=== PATIENT | female | born 1985 | race Caucasian/White ===

== ENCOUNTER 2024-02-01 20:47 | Emergency (ER) | payer SELFPAY ==
[2024-02-01] VITALS (8 sets, daily range): BP systolic 116–170; BP diastolic 80–114; PULSE 82–123; RESP 13–21; TEMP 36.9; O2SAT 95–99; BMI 26.6
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
[2024-02-01 21:13] LABS: Basophils # 0.1 K/mm3 (0-0.2); Basophils % 0.8 % (0.1-2.0); Eosinophils # 0.2 K/mm3 (0.0-0.4); Eosinophils % 1.9 % (0.1-12.0); Hematocrit 45.2 % (37.0-47.0); Hemoglobin 14.8 g/dL (12.2-16.2); Lymphocytes # 3.6 K/mm3 (0.7-4.5); Lymphocytes % 29.7 % (10-50); Mean Corpuscular HGB Conc 32.8 g/dL (31.8-35.4); Mean Corpuscular Hemoglobin 31.3 pg (27.0-31.2); Mean Corpuscular Volume 95.4 fl (81-99); Mean Platelet Volume 8.2 fl (7.4-10.4); Monocytes # 0.6 K/mm3 (0.1-1.0); Monocytes % 5.1 % (1.7-9.3); Neutrophils # 7.5 K/mm3 (1.8-7.8); Neutrophils % 62.5 % (37.0-80.0); Platelet Count 386 K/mm3 (142-424); Red Blood Count 4.74 M/mm3 (4.20-5.40); Red Cell Distribution Width 13.7 % (11.5-17.5)
[2024-02-01 21:17] LABS: Chloride 105 mmol/L (98-107); Sodium 139 mmol/L (136-145)
[2024-02-01 21:18] LABS: Potassium 3.6 mmoL/L (3.5-5.1)
[2024-02-01 21:20] LABS: Alanine Aminotransferase 29 U/L (12-78); Albumin Level 4.7 g/dl (3.5-5.0); Albumin/Globulin Ratio 1.4 (1.1-1.8); Alkaline Phosphatase 127 U/L (38-126); Anion Gap 11.6 mEq/L (5-15); Aspartate Amino Transferase 27 U/L (14-36); Bilirubin,Total 0.7 mg/dl (0.2-1.3); Blood Urea Nitrogen 12 mg/dl (7-17); Calcium 10.1 mg/dl (8.4-10.2); Carbon Dioxide 26 mmol/L (22.0-30.0); Estimated Glomerular Filt Rate 93 ml/min (>60); Ethyl Alcohol < 10 mg/dl (0-10); GFR (African American) 112 ML/MIN (>60); Globulin 3.3 g/dL (1.3-3.2); Glucose 116 mg/dl (74-100)
[2024-02-01 21:21] LABS: Acetaminophen < 10 ug/ml (10-30); Salicylate < 1.0 mg/dL (2.0-20.0)
--- NOTE | 2024-02-01 21:23 | ECG_ITS ---
APPROVED REPORT Exam: Resting ECG HR:114 bpm ECG Measurements Heart Rate 114 AXES ME 120 P 71 QRSd 85 QRS 82 QT 352 T 74 QTc 420 Conclusion SINUS TACHYCARDIA POSSIBLE LEFT ATRIAL ENLARGEMENT [-0.1mV P-WAVE IN V1/V2] ABNORMAL RHYTHM ECG Electronically signed by : MINA THAKKAR, 02/02/2024 00:12:55
[2024-02-01 21:25] LABS: HCG Qualitative, Serum Negative (Negative)
--- NOTE | 2024-02-01 21:34 | PC.NURSE ---
pt states she took the trazodone at 3 am per D Sudhir RAMIREZ if every thing is normal and poison control states she is clear, pt can be medically cleared.
--- NOTE | 2024-02-01 21:51 | PC.NURSE ---
per poison control pt must be watch until 0030
[2024-02-01 21:58] LABS: Creatine Kinase 171 U/L (30-135)
[2024-02-02] VITALS: BP 132/94; PULSE 88; RESP 18; O2SAT 97
[2024-02-02 00:39] VITALS: BP 134/74; PULSE 87; RESP 16; TEMP 36.9; O2SAT 99
== END 2024-02-02 00:40 ==
PROVIDERS: Physician Assistant; Emergency Provider Emergency Medicine
DX: M25.512 Pain in left shoulder (principal); R00.0 Tachycardia, unspecified; F17.210 Nicotine dependence, cigarettes, uncomplicated; W22.8XXA Striking against or struck by other objects, initial encounter
CPT/HCPCS: 80053; 80329; 82550; 84703; 85025; 93005; 99283

== ENCOUNTER 2024-02-12 13:12 | Emergency (ER) | payer MEDICAID, SELFPAY ==
[2024-02-12 13:12] VITALS: BP 124/87; PULSE 96; RESP 20; TEMP 36.9; O2SAT 98; BMI 27.3
--- NOTE | 2024-02-12 13:17 | ECG_ITS ---
APPROVED REPORT Exam: Resting ECG HR:89 bpm ECG Measurements Heart Rate 89 AXES WY 132 P 71 QRSd 90 QRS 83 QT 354 T 75 QTc 401 Conclusion SINUS RHYTHM NORMAL ECG Electronically signed by : BILL WILLIAMSON, 02/12/2024 15:52:56
[2024-02-12 13:21] VITALS: BP 117/85; PULSE 94; O2SAT 98
--- NOTE | 2024-02-12 13:24 | XR_ITS ---
FINAL REPORT TECHNIQUE: Single view chest CLINICAL HISTORY: soa, cp FINDINGS: A single view of the chest was obtained. The heart and mediastinum are within normal limits. The lungs are clear. There is no pneumothorax. Osseous structures are unremarkable. IMPRESSION: No acute cardiopulmonary process. Reviewed, Interpreted and Dictated by Karson Meyer MD Transcribed by Afua Lowry Authenticated and [facility]
--- NOTE | 2024-02-12 13:26 | [facility].EDCP ---
Discharge Plan Disposition Patient Disposition: Home, Self-Care Referrals Follow up/Referrals: Javier Lugo MD [Staff Physician] - See instructions Provider,MD Dylon [Primary Care Provider] - See instructions Activity Restrictions/Add. Instructions Additional Instructions/Restrictions: No evidence of a cardiopulmonary emergency today please follow-up with your primary care doctor or with our grief counsellor to soon as possible. Return with any significant worsening of her symptoms. Clinical Impressions Clinical Impression: Chest pain Discharge ED Provider: Bogdan Menon HPI <Bogdan Menon MD - Last Filed: 02/12/24 14:42> General Chief Complaint: Chest Pain Stated Complaint: Chest Pain Time Seen by Provider: 02/12/24 13:17 History of Present Illness HPI narrative: Please note that above description of symptoms, in this electronic medical record under categorization of recalled from ER triage doctor by RN are reflective of an initial nursing assessment, however, is not reflective of my full history and physical exam that was personally taken and clarified. Consequentially, this preceding description of symptoms, which may include the patient's categorized chief complaint in the EMR, do not reflect my personal clinical impression, and the ultimate description of history of present illness and patient stated complaints should be deferred to this section of the note. Unless stated otherwise or congruent with this section of the note, additional signs, symptoms, or incongruence should be interpreted as inaccurate with my clinical impression. Related Data Allergies Allergy/AdvReac Type Severity Reaction Status Date / Time No Known Allergies Allergy Verified 02/01/24 23:40 PFSH <Bogdan Menon MD - Last Filed: 02/12/24 14:42> PFS Disclaimer: The information contained in this section may have been updated after the patient was seen, as this information can be updated by other users. Social History (Updated 02/01/24 @ 22:45 by KYLEE Barker) Smoking Status: Current every day smoker alcohol intake: current current occupational status: unemployed Travel in the last 8 weeks: None <Bogdan Menon MD - Last Filed: 02/12/24 14:42> ROS Obtained: Yes All systems reviewed & no additional complaints except as documented Physical Exam <Bogdan Menon MD - Last Filed: 02/12/24 14:42> General General appearance: alert Neck Neck exam: Present trachea midline Chest Chest inspection: Present normal inspection and symmetric chest wall rise Respiratory Respiratory exam: Present normal lung sounds bilaterally; Absent respiratory distress, wheezes, stridor, accessory muscle use or prolonged expiratory phase Cardiovascular Cardiovascular exam: Present regular rate and normal rhythm Extremities Exam Extremities exam: Absent edema Neurological Exam Neurological exam: Present alert, oriented X3 and CN II-XII intact Skin Skin exam: Present warm and dry; Absent cyanosis, diaphoresis or pallor HEART Score <Bogdan Menon MD - Last Filed: 02/12/24 14:42> HEART Score HEART Score assessment performed?: Yes HEART Score: 1 <Omaira Talley MD - Last Filed: 02/12/24 16:55> HEART Score History (anamnesis): Slightly suspicious ECG: Non-specific disturbance Age: <45 years Risk factors: No known risk factors Troponin: </= normal limit HEART Score: 1 Critical Care <Bogdan Menon MD - Last Filed: 02/12/24 14:42> Critical Care Time Critical Care Time: No Medical Decision Making <Bogdan Menon MD - Last Filed: 02/12/24 14:42> Medical Records Medical records reviewed: Yes I reviewed the patient's medical records. Jose Manuel Inquiry Pt receiving controlled substance: No Jose Manuel was queried for this patient: No Vital Signs Vital Signs: 02/12/24 13:12 02/12/24 13:21 02/12/24 13:30 Temperature 98.4 F Temperature Source Oral Pulse Rate 94 H 95 H Pulse Rate [Right Radial] 96 H Respiratory Rate 20 Blood Pressure 117/85 124/87 Blood Pressure [Right Arm] 124/87 Blood Pressure Mean 93 98 Blood Pressure Mean [Right Arm] 99 02 Sat by Pulse Oximetry 98 98 97 Oxygen Delivery Method Room Air Lab Data Labs: Lab Results 02/12/24 13:17: WBC 7.9, RBC 4.76, Hgb 14.8, Hct 45.4, MCV 95.5, MCH 31.2, MCHC 32.7, RDW 13.3, Plt Count 268, MPV 8.0, Neut % (Auto) 66.5, Lymph % (Auto) 26.8, [place] % (Auto) 5.4, Eos % (Auto) 0.4, Baso % (Auto) 0.9, Neut # (Auto) 5.3, Lymph # (Auto) 2.1, [place] # (Auto) 0.4, Eos # (Auto) 0.0, Baso # (Auto) 0.1, Sodium 141, Potassium 4.3, Chloride 105, Carbon Dioxide 29, Anion Gap 11.3, BUN 9, Creatinine 0.70, Estimated Creat Clear 138, Estimated GFR 93, Est GFR ( Amer) 112, Glucose 99, Hemoglobin A1c 5.0, Calcium 10.0, Total Bilirubin 0.5, AST 26, ALT 36, Alkaline Phosphatase 120, Troponin I < 0.01, Total Protein 7.2, Albumin 4.4, Globulin 2.8, Albumin/Globulin Ratio 1.6, Triglycerides 186 H, Cholesterol 190, LDL Cholesterol Direct 110.78, VLDL Cholesterol 37, HDL Cholesterol 41, Cholesterol/HDL Ratio 4.6 H, Lipase 85 02/12/24 16:00: Troponin I < 0.01 02/12/24 13:17 02/12/24 13:17 Response Orders (Tests/Meds): ED MEDICATIONS Discontinued Medications Generic Name Dose Route Start Last Admin Trade Name Mac PRN Reason Stop Dose Admin Acetaminophen 1,000 mg 02/12/24 13:24 02/12/24 13:39 Acetaminophen 1,000mg/100ml Vial IV 02/12/24 13:25 1,000 mg ONCE ONE Administration Aspirin 324 mg 02/12/24 13:24 02/12/24 13:36 Aspirin 81mg Chewable Tablet PO 02/12/24 13:25 Not Given ONCE ONE Belladonna Alkaloids 60 ml 02/12/24 13:25 02/12/24 13:38 Belladonna Alkaloids 60 Ml Ml PO 02/12/24 13:26 60 ml ONCE ONE Administration Ketorolac Tromethamine 15 mg 02/12/24 13:24 02/12/24 13:39 Ketorolac 30mg/Ml Vial IV 02/12/24 13:25 15 mg ONCE ONE Administration ORDERS Category Date Time Status XR chest portable Stat Exams 02/12/24 13:24 Completed Complete Blood Count Auto Diff Stat Lab 02/12/24 13:17 Completed Comprehensive Metabolic Panel Stat Lab 02/12/24 13:17 Completed Hemoglobin A1C Stat Lab 02/12/24 13:17 Completed Lipase Stat Lab 02/12/24 13:17 Completed Lipid Panel Stat Lab 02/12/24 13:17 Completed Troponin I Q3H Lab 02/12/24 16:00 Completed Troponin I Q3H Lab 02/12/24 19:30 Ordered Troponin I Stat Lab 02/12/24 13:17 Completed MDM Narrative Medical Decision Narrative: 38-year-old female 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 Patient states that chest pain started about an hour prior to arrival. Left-sided, does not radiate, associated with shortness of breath, diaphoresis and nausea with vomiting. Similar pains like this in the past with her heart attacks. States that she received care for this at other hospitals. No neurologic deficits. Patient also denies drug or alcohol use. History was obtained via conversation with patient. On arrival, patient hemodynamically stable, alert, oriented x4, appropriate, GCS 15, moving all extremities spontaneously, pupils equal and reactive to light. Full physical exam performed and significant for well-appearing female no acute distress, appears anxious. Cardiopulmonary exam within normal limits, pulses equal and symmetric in bilateral upper lower extremities. NIHSS 0, neurologically intact. Lungs are clear to auscultation bilaterally anterior and posterior. Normotensive, nontachycardic, saturating appropriately on room air. Differential includes microvascular coronary artery disease, CHF, ACS, NV, coronary artery dissection, pneumothorax, PE, dissection, pericarditis, myocarditis, pneumothorax, aortic aneurysm, pneumonia, bronchitis, among others. Patient was given aspirin, Toradol, GI cocktail, Tylenol for symptomatic management and correction of underlying abnormalities. Workup independently interpreted and significant for nonactionable CBC or chemistry. Initial troponin negative. See radiology read for full review of final results. Independent interpretation of EKG shows sinus rhythm 89 beats a minute no ST or T wave changes concerning for acute ischemia. [place], QRS, QT intervals within normal limits at 132, 90, 401 ms respectively. [place] normal. Patient placed on continuous cardiac monitoring and continuous pulse ox with initial blood pressure 124/87, heart rate 96, saturation 97% on room air. Heart score 1. Because patient has history of NV and symptoms started for arrival, placed in observation at 2:30 PM. This is to rule out evolving NV with delta troponins. Patient placed on cardiac monitoring repeat exams. Prior to delta troponin and reevaluation, care handed off to oncoming physician. Rotary Saw Operator disclaimer Much of this encounter note is an electronic instrumentation engineering technician spoken language to printed text. Electronic instrumentation engineering technician of the spoken language may permit errors. Although I have reviewed the note, some errors may still exist. <Omaira Talley MD - Last Filed: 02/12/24 16:55> Vital Signs Vital Signs: 02/12/24 13:12 02/12/24 13:21 02/12/24 13:30 Temperature 98.4 F Temperature Source Oral Pulse Rate 94 H 95 H Pulse Rate [Right Radial] 96 H Respiratory Rate 20 Blood Pressure 117/85 124/87 Blood Pressure [Right Arm] 124/87 Blood Pressure Mean 93 98 Blood Pressure Mean [Right Arm] 99 02 Sat by Pulse Oximetry 98 98 97 Oxygen Delivery Method Room Air Lab Data Lab results reviewed: Yes I reviewed the patient's lab results. Labs: Lab Results 02/12/24 13:17: WBC 7.9, RBC 4.76, Hgb 14.8, Hct 45.4, MCV 95.5, MCH 31.2, MCHC 32.7, RDW 13.3, Plt Count 268, MPV 8.0, Neut % (Auto) 66.5, Lymph % (Auto) 26.8, [place] % (Auto) 5.4, Eos % (Auto) 0.4, Baso % (Auto) 0.9, Neut # (Auto) 5.3, Lymph # (Auto) 2.1, [place] # (Auto) 0.4, Eos # (Auto) 0.0, Baso # (Auto) 0.1, Sodium 141, Potassium 4.3, Chloride 105, Carbon Dioxide 29, Anion Gap 11.3, BUN 9, Creatinine 0.70, Estimated Creat Clear 138, Estimated GFR 93, Est GFR ( Amer) 112, Glucose 99, Hemoglobin A1c 5.0, Calcium 10.0, Total Bilirubin 0.5, AST 26, ALT 36, Alkaline Phosphatase 120, Troponin I < 0.01, Total Protein 7.2, Albumin 4.4, Globulin 2.8, Albumin/Globulin Ratio 1.6, Triglycerides 186 H, Cholesterol 190, LDL Cholesterol Direct 110.78, VLDL Cholesterol 37, HDL Cholesterol 41, Cholesterol/HDL Ratio 4.6 H, Lipase 85 02/12/24 16:00: Troponin I < 0.01 Response Orders (Tests/Meds): ED MEDICATIONS Discontinued Medications Generic Name Dose Route Start Last Admin Trade Name Freq PRN Reason Stop Dose Admin Acetaminophen 1,000 mg 02/12/24 13:24 02/12/24 13:39 Acetaminophen 1,000mg/100ml Vial IV 02/12/24 13:25 1,000 mg ONCE ONE Administration Aspirin 324 mg 02/12/24 13:24 02/12/24 13:36 Aspirin 81mg Chewable Tablet PO 02/12/24 13:25 Not Given ONCE ONE Belladonna Alkaloids 60 ml 02/12/24 13:25 02/12/24 13:38 Belladonna Alkaloids 60 Ml Ml PO 02/12/24 13:26 60 ml ONCE ONE Administration Ketorolac Tromethamine 15 mg 02/12/24 13:24 02/12/24 13:39 Ketorolac 30mg/Ml Vial IV 02/12/24 13:25 15 mg ONCE ONE Administration ORDERS Category Date Time Status XR chest portable Stat Exams 02/12/24 13:24 Completed Complete Blood Count Auto Diff Stat Lab 02/12/24 13:17 Completed Comprehensive Metabolic Panel Stat Lab 02/12/24 13:17 Completed Hemoglobin A1C Stat Lab 02/12/24 13:17 Completed Lipase Stat Lab 02/12/24 13:17 Completed Lipid Panel Stat Lab 02/12/24 13:17 Completed Troponin I Q3H Lab 02/12/24 16:00 Completed Troponin I Q3H Lab 02/12/24 19:30 Ordered Troponin I Stat Lab 02/12/24 13:17 Completed MDM Narrative Medical Decision Narrative: 38-year-old female 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 Patient states that chest pain started about an hour prior to arrival. Left-sided, does not radiate, associated with shortness of breath, diaphoresis and nausea with vomiting. Similar pains like this in the past with her heart attacks. States that she received care for this at other hospitals. No neurologic deficits. Patient also denies drug or alcohol use. History was obtained via conversation with patient. On arrival, patient hemodynamically stable, alert, oriented x4, appropriate, GCS 15, moving all extremities spontaneously, pupils equal and reactive to light. Full physical exam performed and significant for well-appearing female no acute distress, appears anxious. Cardiopulmonary exam within normal limits, pulses equal and symmetric in bilateral upper lower extremities. NIHSS 0, neurologically intact. Lungs are clear to auscultation bilaterally anterior and posterior. Normotensive, nontachycardic, saturating appropriately on room air. Differential includes microvascular coronary artery disease, CHF, ACS, NV, coronary artery dissection, pneumothorax, PE, dissection, pericarditis, myocarditis, pneumothorax, aortic aneurysm, pneumonia, bronchitis, among others. Patient was given aspirin, Toradol, GI cocktail, Tylenol for symptomatic management and correction of underlying abnormalities. Workup independently interpreted and significant for nonactionable CBC or chemistry. Initial troponin negative. See radiology read for full review of final results. Independent interpretation of EKG shows sinus rhythm 89 beats a minute no ST or T wave changes concerning for acute ischemia. [place], QRS, QT intervals within normal limits at 132, 90, 401 ms respectively. [place] normal. Patient placed on continuous cardiac monitoring and continuous pulse ox with initial blood pressure 124/87, heart rate 96, saturation 97% on room air. Heart score 1. Because patient has history of NV and symptoms started for arrival, placed in observation at 2:30 PM. This is to rule out evolving NV with delta troponins. Patient placed on cardiac monitoring repeat exams. Prior to delta troponin and reevaluation, care handed off to oncoming physician. Rotary Saw Operator disclaimer Much of this encounter note is an electronic instrumentation engineering technician spoken language to printed text. Electronic instrumentation engineering technician of the spoken language may permit errors. Although I have reviewed the note, some errors may still exist. Reassessment 4:[address] Talley took over from Dr. Menon pending second troponin I reevaluated the patient and she is feeling very good serial troponins are negative vital signs are normal chest x-ray was performed which I first interpreted shows no acute cardiopulmonary emergency I reviewed her EKG as well which was unremarkable. Patient will follow-up outpatient with her grief counsellor and was discharged in stable condition.
[2024-02-12 13:30] VITALS: BP 124/87; PULSE 95; O2SAT 97
[2024-02-12 13:34] LABS: Chloride 105 mmol/L (98-107); Potassium 4.3 mmoL/L (3.5-5.1); Sodium 141 mmol/L (136-145)
[2024-02-12 13:36] LABS: Alanine Aminotransferase 36 U/L (12-78); Alkaline Phosphatase 120 U/L (38-126); Anion Gap 11.3 mEq/L (5-15); Aspartate Amino Transferase 26 U/L (14-36); Bilirubin,Total 0.5 mg/dl (0.2-1.3); Blood Urea Nitrogen 9 mg/dl (7-17); Carbon Dioxide 29 mmol/L (22.0-30.0); Creatinine Clearance Estimated 138 mL/min (50-200); Estimated Glomerular Filt Rate 93 ml/min (>60); GFR (African American) 112 ML/MIN (>60)
[2024-02-12 13:37] LABS: Albumin Level 4.4 g/dl (3.5-5.0); Albumin/Globulin Ratio 1.6 (1.1-1.8); Chol/HDL Ratio 4.6 (1-3.5); Cholesterol 190 mg/dl (140-200); Globulin 2.8 g/dL (1.3-3.2); Glucose 99 mg/dl (74-100); HDL Cholesterol 41 mg/dl (40-60); Lipase 85 U/L (23-300); Total Protein,Serum 7.2 g/dl (6.3-8.2); Triglycerides 186 mg/dl (30-150); VLDL Cholesterol 37 mg/dL (0-40)
[2024-02-12] MEDS: BELLADONNA ALKALOIDS 60 ML ML PO (13:38)
[2024-02-12] MEDS: ACETAMINOPHEN 1,000MG/100ML VIAL 1000 MG IV (13:39)
[2024-02-12] MEDS: KETOROLAC 30MG/ML VIAL 15 MG IV (13:39)
[2024-02-12 13:48] LABS: Direct LDL Cholesterol 110.78 mg/dL (100-129)
[2024-02-12 13:52] LABS: Troponin I < 0.01 ng/ml (0.00-0.034)
[2024-02-12 13:56] LABS: Basophils # 0.1 K/mm3 (0-0.2); Basophils % 0.9 % (0.1-2.0); Eosinophils % 0.4 % (0.1-12.0); Hematocrit 45.4 % (37.0-47.0); Hemoglobin 14.8 g/dL (12.2-16.2); Lymphocytes # 2.1 K/mm3 (0.7-4.5); Lymphocytes % 26.8 % (10-50); Mean Corpuscular HGB Conc 32.7 g/dL (31.8-35.4); Mean Corpuscular Hemoglobin 31.2 pg (27.0-31.2); Mean Corpuscular Volume 95.5 fl (81-99); Monocytes # 0.4 K/mm3 (0.1-1.0); Monocytes % 5.4 % (1.7-9.3); Neutrophils # 5.3 K/mm3 (1.8-7.8); Neutrophils % 66.5 % (37.0-80.0); Platelet Count 268 K/mm3 (142-424); Red Blood Count 4.76 M/mm3 (4.20-5.40); Red Cell Distribution Width 13.3 % (11.5-17.5); White Blood Count 7.9 K/mm3 (4.8-10.8)
[2024-02-12 16:44] LABS: Troponin I < 0.01 ng/ml (0.00-0.034)
[2024-02-12 16:58] VITALS: BP 115/82; PULSE 85; RESP 20; TEMP 36.9; O2SAT 97
== END 2024-02-12 16:59 | disposition home or self-care (01) ==
PROVIDERS: Emergency Provider Emergency Medicine
DX: R07.9 Chest pain, unspecified (principal); F17.210 Nicotine dependence, cigarettes, uncomplicated; Z86.79 Personal history of other diseases of the circulatory system
CPT/HCPCS: 71045; 80053; 80061; 83036; 83690; 84484; 85025; 93005; 96374; 96375; 99284; J0131